=== PATIENT | male | born 1965 | race Caucasian/White ===

== ENCOUNTER 2020-02-28 23:47 | Emergency (ER) | payer SELFPAY ==
[~2020-02-28] VITALS: Ht 157.5 cm; Wt 70.3 kg
[2020-02-28 23:50] VITALS: Ht 157.5 cm; Wt 70.3 kg
[2020-02-29 01:51] LABS: BASOPHIL % 0.5 % (0.2-1.5); PLATELET COUNT 270 x10^3mcL (152-348); RED CELL DISTRIBUTION WIDTH 13.7 % (12.1-16.2)
[2020-02-29 01:58] LABS: CARBON DIOXIDE 18.7 mmol/L (21-32); CHLORIDE SERUM 103 mmol/L (98-107); GFR1 > 60 mL/min; GLUCOSE SERUM 111 mg/dL (74-106); POTASSIUM SERUM 3.3 mmol/L (3.5-5.1); SODIUM SERUM 137 mmol/L (136-145)
[2020-02-29 02:04] LABS: ALBUMIN 4.5 g/dL (3.4-5.0); ALKALINE PHOSPHATASE 129 U/L (46-116); ALT/SGPT 58 U/L (16-63); AST/SGOT 26 U/L (15-37); BILIRUBIN TOTAL 0.34 mg/dL (0.20-1.00); LIPASE 205 IU/L (73-393)
[2020-02-29 02:05] LABS: TOTAL PROTEIN, SERUM 8.5 g/dL (6.4-8.2)
[2020-02-29 03:39] VITALS: BP 135/97
== END 2020-02-29 03:39 | disposition home or self-care (01) ==
LOC: ED 23:47
PROVIDERS: Emergency Medicine
DX: K57.92 Diverticulitis of intestine, part unspecified, without perforation or abscess without bleeding (principal); F17.200 Nicotine dependence, unspecified, uncomplicated; Z20.828 Contact with and (suspected) exposure to other viral communicable diseases
CPT/HCPCS: J1885; Q0162; U0003